=== PATIENT | male | born 1960 | race African-American/Black ===

== ENCOUNTER 2016-11-13 08:30 | Emergency (ER) | payer SELFPAY ==
[~2016-11-13] VITALS: Ht 167.6 cm; Wt 63.5 kg
[2016-11-13 08:32] VITALS: BP 162/72; PULSE 58; RESP 20; TEMP 98; O2SAT 98
[2016-11-13] MEDS ORDERED: PERC10TA27 PO (08:41)
--- NOTE | 2016-11-13 09:14 | PD ---
HPI Chief Complaint: Pain: Acute or Chronic Time Seen by Provider: 09:05 Travel History International Travel<30 days: No Contact w/Intl Traveler<30days: No Traveled to known affect area: No History of Present Illness HPI 56-year-old male presents to the emergency department requesting financial assistance for right hip osteonecrosis that was diagnosed by [facility] on November 11. He went to his primary care provider yesterday and another urgent care and was told to come here for financial assistance. He has been having right hip pain with worsening for one year. He denies fever, chills, nausea, vomiting. Denies new or recent injury. Reports being ambulatory on the affected extremity. He had a CT abdomen/pelvis, right hip x-ray, and lab work done at [facility] on November 11 and per his discharge papers he was to follow up with primary care within 1 week. He was told that he needed a total hip replacement. He has no other medical complaints. No other modifying factors or associated signs and symptoms. History Social History Alcohol Use: Yes (weekly) Tobacco Use: Yes (cigars/occ) Allergies-Medications (Allergen,Severity, Reaction): Coded Allergies: No Known Allergies (Unverified , 11/13/16) Reported Meds & Prescriptions Reported Meds & Active Scripts Active Reported Percocet (Oxycodone-Acetaminophen) 10-325 mg Tab 1 Tab PO Q6H PRN Review of Systems Except as stated in HPI: all other systems reviewed are Neg Physical Exam Narrative GENERAL: Well-nourished, well-developed male patient, in no acute distress; afebrile, nontoxic-appearing SKIN: Warm and dry. HEAD: Atraumatic. Normocephalic. EYES: Pupils equal and round. No scleral icterus. No injection or drainage. ENT: Mucosa pink and moist. Airway patent. NECK: Trachea midline. CARDIOVASCULAR: Regular rate. RESPIRATORY: No accessory muscle use. GASTROINTESTINAL: Flat. MUSCULOSKELETAL: [Right hip with full range of motion; no erythema, edema, ecchymosis; with tenderness on abduction; tenderness on palpation tot he lateral aspect; no obvious deformity; no leg length discrepancy. Right lower extremity is supple and non-tense. NEUROLOGICAL: Awake and alert. Oriented 3. No obvious cranial nerve deficits. Motor grossly within normal limits. Normal speech. PSYCHIATRIC: Appropriate mood and affect; insight and judgment normal. Data Data Last Documented VS Vital Signs Date Time Temp Pulse Resp B/P Pulse Ox O2 Delivery O2 Flow Rate FiO2 11/13/16 08:32 98.0 58 20 162/72 98 Room Air MDM Medical Screen Exam Complete: Yes Emergency Medical Condition: No Differential Diagnosis Medical clearance, right hip pain, osteonecrosis Narrative Course 56-year-old male presents for financial help for right hip osteonecrosis which she was diagnosed with on November 11 after being seen at [facility]. He had a CT abdomen/pelvis, right hip x-ray, and lab work done at that time. He has had hip pain with worsening times one year. He was told he needed a right hip replacement. He was told to come here by his PCP and urgent care. Since the patient just had recent imaging I did not feel it was necessary to repeat imaging at this time. His discharge instructions from for Hospital stated for him to follow up with primary care within 1 week. He also has prescriptions for Percocet for pain. He is only here for financial help and has no other medical complaints except for the right hip pain. The patient was provided with contact for application for Medicaid and patient assistance application by the financial counselor. Vital signs are stable and the patient is stable for outpatient follow-up and treatment. The patient has no urgent or emergent medical complaints. There is no emergent or urgent medical need at this time. I instructed the patient to follow up with their primary care provider. A medical screening exam was performed: At the time of evaluation the presenting medical condition was determined not to be of an emergent nature. The patient was given the option of receiving additional care, but declined. Patient was given options for additional community resources from which to obtain care. The Patient Has Been advised to seek medical attention for their presenting complaint. The patient has been advised to return to the ER at any time if an emergent condition develops. Primary Impression: Encounter for medical screening examination Condition: Stable Jenna Serna Nov 13, 2016 09:14
== END 2016-11-13 09:10 | disposition left against medical advice (07) ==
LOC: NEPK 08:30
DX: M25.551 Pain in right hip (principal); Z72.0 Tobacco use
CPT/HCPCS: 99281